=== PATIENT | female | born 1970 | race Caucasian/White ===

== ENCOUNTER 2022-11-04 11:40 | Inpatient (IN) ==
[2022-11-04] MEDS ORDERED: DECADRON INJ IV ONE (11:54)
--- NOTE | 2022-11-04 11:54 | DR.SOBA ---
HPI Time Seen Time Seen by Provider: 11/04/22 11:53 Primary Care Physician Primary Care Physician: nfd Complaints Chief Complaint Doctors Comments: 52 y/o female presents for evaluation. Has had problems with her lungs since getting covid last year. Having recurrent bronchitis issues over the past 4 months. + worsened the past few days. Having cough, not very productive. + wheezing, shortness of breath. Running low grade temp. Not a smoker. Chief Complaint:: history diff to assess. pt anxious and having trouble breathing. noted exp wheeze and using assessory muscles throughout chest and neck to breath. states she has had covid 8mths ago and has not got better. had been on antibiotics, steriods and such without improvement. Self Treatment fo Chief Complaint: has used nebs COVID-19 Coronavirus risk:travel/contact w/high risk person: No Has patient experienced Coronavirus symptoms: Yes Coronavirus symptoms experienced: Coughing and Shortness of Breath Reviewed Nurses Notes Reviewed: Yes Source History Provided: Patient Mode of Arrival Mode of Arrival: Ambulatory Timing Onset of Chief Complaint: 11/03/22 PMH PMH Past Medical History: Yes Past Medical History: Depression and Hypertension Past Medical History Comment: covid 8 months ago Past Surgical History: Yes Surgical History: , Hysterectomy and Tonsillectomy Family History History of Family Medical Conditions: Yes Family Medical History: Diabetes Mellitus, Cancer, Heart Failure and Hyp ertension Social History Alcohol Use: None Do you use any recreational Drugs:: No Lives With: Family Lives Where: Home Travel Risk Coronavirus risk:travel/contact w/high risk person: No Has patient experienced Coronavirus symptoms: Yes Coronavirus symptoms experienced: Coughing and Shortness of Breath Infectious screening In the last 2 months have you had wt loss of >10#?: NO Have you had fever, night sweats or hemotysis?: No Have you traveled outside the country in the last 6 months?: No Isolation: Droplet ROS Review of Systems Constitutional: Weakness Eyes: No Symptoms Reported ENTM: Nose Congestion Respiratoy: Moist Cough, Short of Breath and Wheezing Cardiovascular: No Symptoms Reported Gastrointestinal/Abdominal: No Symptoms Reported Genitourinary: No Symptoms Reported Neurological: Weakness Musculoskeletal: No Symptoms Reported Integumentary: No Symptoms Reported Hematologic/Lymphatic: No Symptoms Reported Psychiatric: No Symptoms Reported All Other Systems: Reviewed and Negative PE Vital Signs Vitals: Temperature 98.1 F Pulse Rate 86 Respiratory Rate 27 Blood Pressure [Right Arm] 133/77 Blood Pressure 132/77 O2 Sat by Pulse Oximetry 94 General General Appearance: Alert, In Distress and Other (+ respiratory distress, + cough, + expiratory wheezing. ) Eyes Eye exam: PERRL and EOMI ENT ENT Exam: Normal Oropharynx and Mucous Membranes Moist Neck Neck Exam: Normal Inspection Respiratory Respiratory Exam: Accessory Muscle Use, Prolonged Expiratory Phase and Respiratory Distress Respiratory Exam: Bilateral: Wheezing (expiratory) Cardiovascular Cardiovascular Exam: Regular Rate, Normal Rhythm and Normal Heart Sounds Abdominal Exam Abdominal Exam: Normal Inspection, Normal Bowel Sounds and Soft; negative Tenderness Extremities Extremities Exam: Normal Inspection and Full ROM; negative Edema Neurologic Neurological Exam: Alert, Oriented X3 and CN II-XII Intact; negative Motor Sensory Deficit Skin Skin Exam: Warm and Dry MDM Differential Diagnosis Differential Diagnosis: Asthma, Bronchitis, CHF, COPD, Mycardial Infarction and Pulmonary embolism COURSE Treatment Treatment: 52 y/o female with respiratory issues over the past year, after having Covid. + worsening symptoms over the past few days. + expiratory wheezing. W.u initiated. Given duoneb x 2, IV decadron, IV morphine. 1318 - CXR clear. Covid/flu negative. Labs acceptable. 1340 - resting, still bilateral expiratory wheezing. Recommend admission for further treatment, pt informed. Discussed with Dr Wang (employee relations director), accepts the admission. ROR Labs Reviewed Laboratory Results Reviewed?: Yes Result Diagrams: 11/04/22 11:45 11/04/22 11:54 Laboratory: WBC 14.1 X10^3/uL (3.6-10.0) H 11/04/22 11:45 RBC 4.56 X10^6/uL (3.5-5.4) 11/04/22 11:45 Hgb 12.5 g/dL (12.0-16.0) 11/04/22 11:45 Hct 37.7 % (36.0-47.0) 11/04/22 11:45 MCV 82.7 fL (80.0-100.0) 11/04/22 11:45 MCH 27.5 pg (27.0-34.0) 11/04/22 11:45 MCHC 33.3 g/dL (33.0-35.0) 11/04/22 11:45 RDW 14.4 % (11.6-16.5) 11/04/22 11:45 Plt Count 281 X10^3/uL (150.0-450.0) 11/04/22 11:45 MPV 9.3 fL (7.4-11.0) 11/04/22 11:45 Neut % (Auto) 71.1 % (42.0-75.0) 11/04/22 11:45 Lymph % (Auto) 17.5 % (21.0-51.0) L 11/04/22 11:45 [place] % (Auto) 6.8 % (0.0-13.0) 11/04/22 11:45 Eos % (Auto) 3.8 % (0.9-2.9) H 11/04/22 11:45 Baso % (Auto) 0.8 % (0.2-1.0) 11/04/22 11:45 Neut # (Auto) 10.0 x10^3/uL (2.2-4.8) H 11/04/22 11:45 Lymph # (Auto) 2.5 X10^3/uL (1.3-2.9) 11/04/22 11:45 [place] # (Auto) 1.0 x10^3/uL (0.3-0.8) H 11/04/22 11:45 Eos # (Auto) 0.5 x10^3/uL (0.0-0.2) H 11/04/22 11:45 Baso # (Auto) 0.1 X10^3/uL (0.0-0.1) 11/04/22 11:45 Absolute Nucleated RBC 0.0 /100WBC 11/04/22 11:45 Sodium 139 mmol/L (136-145) 11/04/22 11:54 Corrected Sodium TNP 11/04/22 11:54 Potassium 3.5 mmol/L (3.5-5.1) 11/04/22 11:54 Chloride 100 mmol/L (98-107) 11/04/22 11:54 Carbon Dioxide 28.6 mmol/L (21-32) 11/04/22 11:54 BUN 13 mg/dL (7-18) 11/04/22 11:54 Creatinine 0.85 mg/dL (0.55-1.02) 11/04/22 11:54 Est GFR (MDRD) Af Amer > 60 (>60) 11/04/22 11:54 Est GFR (MDRD) Non-Af > 60 (>60) 11/04/22 11:54 Glucose 104 mg/dL (65-99) H 11/04/22 11:54 Calcium 8.7 mg/dL (8.5-10.1) 11/04/22 11:54 Corrected Calcium TNP 11/04/22 11:54 Total Bilirubin 0.80 mg/dL (0.2-1.0) 11/04/22 11:54 AST 20 Units/L (15-37) 11/04/22 11:54 ALT 28 Units/L (12-78) 11/04/22 11:54 Alkaline Phosphatase 113 Units/L (46-116) 11/04/22 11:54 Troponin I High Sens 6.3 ng/L (4.0-60.0) 11/04/22 11:54 Total Protein 7.3 g/dL (6.4-8.2) 11/04/22 11:54 Albumin 3.4 g/dL (3.4-5.0) 11/04/22 11:54 Globulin 3.9 g/dL (2.5-4.5) 11/04/22 11:54 Albumin/Globulin Ratio 0.9 Ratio (1.1-2.1) L 11/04/22 11:54 Influenza Type A Ag Negative-presumptive (NEGATIVE) 11/04/22 12:21 Influenza Type B Ag Negative-presumptive (NEGATIVE) 11/04/22 12:21 SARS CoV-2 RNA Rapid RAH Negative (NEGATIVE) 11/04/22 12:21 Labs acceptable. XRAY XRAY Interpreted by: Self X-ray Results: CXR without acute abnormalities EKG Rate: 93 Jolley: Normal Rhythm: NSR Block: None Hypertrophy: LAE ST: Nonsp Opioid Opioid Risk Tool Age (Dick box if 16-45): No Total: 0 Total Score Risk Category: Low Risk Copyright: Aj MILLER predicting aberrant behaviors Discharge Plan Diagnosis Discharge Problem: Acute bronchitis with bronchospasm Discharge Plan Patient Disposition: 09 ADMITTED INPATIENT Condition: Stable Orders to Discharge Patient Discharge Orders: Transfer (Routine); Ordered 11/04/22 Ordered By: Adriano Cosby
[2022-11-04] MEDS ORDERED: DECADRON INJ ONE (12:05)
--- NOTE | 2022-11-04 12:06 | EKG ---
Test Reason : dyspnea Blood Pressure : */* mmHG Vent. Rate : 93 BPM Atrial Rate : 93 BPM P-R Int : 146 ms QRS Dur : 84 ms QT Int : 372 ms P-R-T Axes : 56 -13 37 degrees QTc Int : 462 ms Normal sinus rhythm Low voltage QRS Cannot rule out Anterior infarct , age undetermined Abnormal ECG No previous ECGs available Confirmed by Sanya Campos ([id number]) on 11/05/2022 12:33:46 PM Referred By: Confirmed By: Sanya Campos
[2022-11-04 12:25] LABS: BASOPHILS # (AUTO) 0.1 X10^3/uL (0.0-0.1); BASOPHILS % (AUTO) 0.8 % (0.2-1.0); EOSINOPHILS # (AUTO) 0.5 x10^3/uL (0.0-0.2); EOSINOPHILS % (AUTO) 3.8 % (0.9-2.9); HEMATOCRIT 37.7 % (36.0-47.0); HEMOGLOBIN 12.5 g/dL (12.0-16.0); LYMPHOCYTES # (AUTO) 2.5 X10^3/uL (1.3-2.9); LYMPHOCYTES % (AUTO) 17.5 % (21.0-51.0); MEAN CORPUSCULAR HEMOGLOBIN 27.5 pg (27.0-34.0); MEAN CORPUSCULAR HGB CONC 33.3 g/dL (33.0-35.0); MEAN CORPUSCULAR VOLUME 82.7 fL (80.0-100.0); MEAN PLATELET VOLUME 9.3 fL (7.4-11.0); MONOCYTES % (AUTO) 6.8 % (0.0-13.0); NEUTROPHILS % (AUTO) 71.1 % (42.0-75.0); RED BLOOD COUNT 4.56 X10^6/uL (3.5-5.4); RED CELL DISTRIBUTION WIDTH 14.4 % (11.6-16.5); WHITE BLOOD COUNT 14.1 X10^3/uL (3.6-10.0)
[2022-11-04 12:41] LABS: ALANINE AMINOTRANSFERASE 28 Units/L (12-78); ALBUMIN 3.4 g/dL (3.4-5.0); ALKALINE PHOSPHATASE 113 Units/L (46-116); ASPARTATE AMINO TRANSFERASE 20 Units/L (15-37); BLOOD UREA NITROGEN 13 mg/dL (7-18); CALCIUM 8.7 mg/dL (8.5-10.1); CARBON DIOXIDE 28.6 mmol/L (21-32); CHLORIDE 100 mmol/L (98-107); CREATININE 0.85 mg/dL (0.55-1.02); SODIUM 139 mmol/L (136-145); TOTAL PROTEIN 7.3 g/dL (6.4-8.2); eGFR NON BLACK RACES > 60 (>60)
[2022-11-04] MEDS ORDERED: DUONEB 0.5 MG/3 MG (3 mL) NEB ONE (12:47)
[2022-11-04] MEDS ORDERED: MORPHINE SULFATE INJ 4 MG IVP ONE (12:47)
[2022-11-04] MEDS ORDERED: ZOFRAN INJ 4 MG VIAL IVP ONE (12:48)
[2022-11-04] MEDS ORDERED: MORPHINE SULFATE INJ 4 MG ONE (12:50)
[2022-11-04] MEDS ORDERED: ZOFRAN INJ 4 MG VIAL ONE (12:50)
--- NOTE | 2022-11-04 13:11 | RAD ---
HISTORYRelevant Clinical Information syncopeSTUDYCHEST, 1 VIEWCOMPARISONDecember 2021FINDINGSThe trachea is midline. The cardiac silhouette is unremarkable. The lungs are clear without focal infiltrate or effusion. The bony thorax is unremarkable.IMPRESSIONNo acute cardiopulmonary disease.Electronically signed by: GISEL RAMÍREZ (Nov 04, 2022 13:10:11)
[2022-11-04] MEDS: NS 1,000 ML IV 1,000 ML IV SCH (15:07)
[2022-11-04 15:10] VITALS: BMI 32.2
[2022-11-04] MEDS ORDERED: HYDROCORTISONE CRM 1% TOP PRN (15:11)
[2022-11-04] MEDS: ROCEPHIN VIAL 1 GRAM 1 G in NS 100 ML IV 100 ML IV SCH (16:27)
--- NOTE | 2022-11-04 16:29 | DR.H&P ---
H&P History & Physical for Day of: H&P Date: 11/04/22 Chief Complaint Chief Complaint: Dyspnea Allergies Allergies Allergy/AdvReac Type Severity Reaction Status Date / Time No Known Drug Allergies Allergy Verified 11/04/22 11:43 History of Present Illness History of Present Illness: This is a pleasant 52-year-old white female who is a non-smoker who presented to the [facility] emergency department with a 4-day history of worsening respiratory infection and dyspnea. She has had trouble breathing off and on since having COVID last year going on for months now. She has been treated with oral antibiotics and steroids as outpatient but has not gotten any better. Today in the ER she is using her accessory muscles to breathe in her chest and neck she is noted to be hypoxic on room air with SPO2 91%. After 2 DuoNeb treatments her O2 sat did come up into the mid 90s on 2 L nasal cannula. She reports that the breathing treatments did help her breathing however she is still having diffuse expiratory wheezing on auscultation past treatments. She remains hypoxic even on O2 so we will go ahead admit her to the ICU floor and start her on IV antibiotics along with IV steroids and continue DuoNeb treatments. Chest x-ray was done was normal plan on rechecking that again tomorrow morning. I will also check a D-dimer and do a CT of her lungs if it is positive. Past Medical History Past Medical History: Depression and Hypertension Past Surgical History Surgical History: , Hysterectomy and Tonsillectomy Family History Family Medical History: Diabetes Mellitus, Cancer, Heart Failure and Hypertensi on Social History Does patient currently use any type of tobacco product: No Have you used tobacco products in the last 12 months: No Type of Tobacco Use: None Does any household member use tobacco: No Alcohol Use: None Drug Use: None Medications Home Medications: No Known Drug Allergies Allergy (Verified 11/04/22 11:43) Labs Result Diagrams: 11/04/22 11:45 11/04/22 11:54 Labs: Laboratory WBC 14.1 X10^3/uL (3.6-10.0) H 11/04/22 11:45 RBC 4.56 X10^6/uL (3.5-5.4) 11/04/22 11:45 Hgb 12.5 g/dL (12.0-16.0) 11/04/22 11:45 Hct 37.7 % (36.0-47.0) 11/04/22 11:45 MCV 82.7 fL (80.0-100.0) 11/04/22 11:45 MCH 27.5 pg (27.0-34.0) 11/04/22 11:45 MCHC 33.3 g/dL (33.0-35.0) 11/04/22 11:45 RDW 14.4 % (11.6-16.5) 11/04/22 11:45 Plt Count 281 X10^3/uL (150.0-450.0) 11/04/22 11:45 MPV 9.3 fL (7.4-11.0) 11/04/22 11:45 Neut % (Auto) 71.1 % (42.0-75.0) 11/04/22 11:45 Lymph % (Auto) 17.5 % (21.0-51.0) L 11/04/22 11:45 [place] % (Auto) 6.8 % (0.0-13.0) 11/04/22 11:45 Eos % (Auto) 3.8 % (0.9-2.9) H 11/04/22 11:45 Baso % (Auto) 0.8 % (0.2-1.0) 11/04/22 11:45 Neut # (Auto) 10.0 x10^3/uL (2.2-4.8) H 11/04/22 11:45 Lymph # (Auto) 2.5 X10^3/uL (1.3-2.9) 11/04/22 11:45 [place] # (Auto) 1.0 x10^3/uL (0.3-0.8) H 11/04/22 11:45 Eos # (Auto) 0.5 x10^3/uL (0.0-0.2) H 11/04/22 11:45 Baso # (Auto) 0.1 X10^3/uL (0.0-0.1) 11/04/22 11:45 Absolute Nucleated RBC 0.0 /100WBC 11/04/22 11:45 D-Dimer 0.49 ug/ml (0.0-0.57) 11/04/22 11:54 Sodium 139 mmol/L (136-145) 11/04/22 11:54 Corrected Sodium TNP 11/04/22 11:54 Potassium 3.5 mmol/L (3.5-5.1) 11/04/22 11:54 Chloride 100 mmol/L (98-107) 11/04/22 11:54 Carbon Dioxide 28.6 mmol/L (21-32) 11/04/22 11:54 BUN 13 mg/dL (7-18) 11/04/22 11:54 Creatinine 0.85 mg/dL (0.55-1.02) 11/04/22 11:54 Est GFR (MDRD) Af Amer > 60 (>60) 11/04/22 11:54 Est GFR (MDRD) Non-Af > 60 (>60) 11/04/22 11:54 Glucose 104 mg/dL (65-99) H 11/04/22 11:54 Calcium 8.7 mg/dL (8.5-10.1) 11/04/22 11:54 Corrected Calcium TNP 11/04/22 11:54 Total Bilirubin 0.80 mg/dL (0.2-1.0) 11/04/22 11:54 AST 20 Units/L (15-37) 11/04/22 11:54 ALT 28 Units/L (12-78) 11/04/22 11:54 Alkaline Phosphatase 113 Units/L (46-116) 11/04/22 11:54 Troponin I High Sens 6.3 ng/L (4.0-60.0) 11/04/22 11:54 Total Protein 7.3 g/dL (6.4-8.2) 11/04/22 11:54 Albumin 3.4 g/dL (3.4-5.0) 11/04/22 11:54 Globulin 3.9 g/dL (2.5-4.5) 11/04/22 11:54 Albumin/Globulin Ratio 0.9 Ratio (1.1-2.1) L 11/04/22 11:54 Influenza Type A Ag Negative-presumptive (NEGATIVE) 11/04/22 12:21 Influenza Type B Ag Negative-presumptive (NEGATIVE) 11/04/22 12:21 SARS CoV-2 RNA Rapid RAH Negative (NEGATIVE) 11/04/22 12:21 Review of Systems Constitutional: Fever, Weakness and Malaise Eyes: No Symptoms Reported ENT: Nose Discharge and Nose Congestion Respiratory: Cough, Dry, Shortness of Breath and Wheezing Cardiovascular: Light Headedness Gastrointestinal: Nausea Genitourinary: No Symptoms Reported Musculoskeletal: No Symptoms Reported Skin: No Symptoms Reported Neurological: No Symptoms Reported Physical Exam Vital Signs: Temperature 98.0 F Pulse Rate [Apical] 89 Pulse Rate 73 Respiratory Rate 40 Blood Pressure [Left Arm] 129/65 Blood Pressure [Right Arm] 133/77 Blood Pressure 138/72 O2 Sat by Pulse Oximetry 94 Oriented: Normal, Time and Place Respiratory: Wheezes Throughout Cardiovascular: Normal Auscultation: Bowel Sounds: Normal Palpation: Normal Tenderness: Normal Skin: Normal Musculoskeletal: Normal Psychiatric: Anxiety Mood Description: Labile Affect: Flat Speech Pattern: Clear and Appropriate Assessment/Plan (1) Acute bronchitis with bronchospasm: Status: Acute Plan: Continue DuoNebs every 6 hours and start the patient on IV Rocephin 1 g IV daily along with Vibramycin 100 mg IV every 12 hours and continue IV Solu-Medrol 40 mg IV every 8 hours. Recheck chest x-ray tomorrow morning. Repeat CBC and CMP tomorrow morning as well. Review H&P Reviewed: Yes Patient was examined?: Yes
[2022-11-04] MEDS: DUONEB 0.5 MG/3 MG (3 mL) NEB SCH ×2 (17:00→21:20)
[2022-11-04] MEDS: VIBRAMYCIN 100 MG in D5W 250 ML IV 250 ML IV SCH ×2 (17:37→20:22)
[2022-11-04 19:16] LABS: BILIRUBIN,URINE NEGATIVE (NEGATIVE); BLOOD/HEMOGLOBIN,URINE NEGATIVE (NEGATIVE); GLUCOSE, URINE NEGATIVE (NEGATIVE); KETONES,URINE NEGATIVE (NEGATIVE); LEUKOCYTE ESTERASE ,URINE NEGATIVE (NEGATIVE); NITRITES,URINE NEGATIVE (NEGATIVE); PROTEIN,URINE NEGATIVE (NEGATIVE); UROBILINOGEN,URINE NORMAL (NORMAL)
[2022-11-04 19:23] LABS: APPEARANCE,URINE CLEAR (CLEAR); COLOR,URINE YELLOW (YELLOW)
[2022-11-04] MEDS: SOLU-Medrol 40 MG VIAL IVP SCH (21:12)
[2022-11-04] MEDS: TYLENOL 325 MG TAB PO PRN (21:12)
[2022-11-04] MEDS ORDERED: KLOR-CON PO PRN (21:37)
[2022-11-04] MEDS ORDERED: MICRO K EXTEN CAP 10 MEQ PO PRN (21:37)
[2022-11-04] MEDS ORDERED: POTASSIUM CHL 40 MEQ/NS 0.45% 500 ML IV PRN (21:37)
[2022-11-04] MEDS ORDERED: POTASSIUM CHL 60 MEQ/NS 0.45% 500 ML IV PRN (21:37)
[2022-11-04] MEDS ORDERED: POTASSIUM CHLORIDE LIQ 20 MEQ UDC PO PRN (21:37)
[2022-11-04] MEDS ORDERED: K-DUR TAB 20 MEQ PO PRN (21:37)
[2022-11-04] MEDS ORDERED: DUONEB 0.5 MG/3 MG (3 mL) NEB SCH (22:00)
[2022-11-05] MEDS: NS 1,000 ML IV 1,000 ML IV SCH ×3 (03:39→17:17)
[2022-11-05 05:21] LABS: BASOPHILS # (AUTO) 0.1 X10^3/uL (0.0-0.1); BASOPHILS % (AUTO) 0.6 % (0.2-1.0); HEMATOCRIT 37.3 % (36.0-47.0); HEMOGLOBIN 12.9 g/dL (12.0-16.0); LYMPHOCYTES # (AUTO) 0.6 X10^3/uL (1.3-2.9); MEAN CORPUSCULAR HEMOGLOBIN 28.3 pg (27.0-34.0); MEAN CORPUSCULAR HGB CONC 34.5 g/dL (33.0-35.0); MEAN CORPUSCULAR VOLUME 82.1 fL (80.0-100.0); MONOCYTES # (AUTO) 0.1 x10^3/uL (0.3-0.8); MONOCYTES % (AUTO) 1.2 % (0.0-13.0); NEUTROPHILS # (AUTO) 9.8 x10^3/uL (2.2-4.8); NEUTROPHILS % (AUTO) 92.2 % (42.0-75.0); RED BLOOD COUNT 4.54 X10^6/uL (3.5-5.4); RED CELL DISTRIBUTION WIDTH 14.3 % (11.6-16.5); WHITE BLOOD COUNT 10.7 X10^3/uL (3.6-10.0)
[2022-11-05] MEDS: SOLU-Medrol 40 MG VIAL IVP SCH ×3 (05:28→21:48)
[2022-11-05 05:33] LABS: ALANINE AMINOTRANSFERASE 23 Units/L (12-78); ALKALINE PHOSPHATASE 109 Units/L (46-116); ASPARTATE AMINO TRANSFERASE 15 Units/L (15-37); BLOOD UREA NITROGEN 14 mg/dL (7-18); CALCIUM 8.8 mg/dL (8.5-10.1); CARBON DIOXIDE 26.7 mmol/L (21-32); CHLORIDE 103 mmol/L (98-107); COR CA(FOR HYPOALB) 9.6 mg/dL (8.5-10.1); COR NA(FOR HYPERGLY) 142 mmol/L (136-145); CREATININE 0.81 mg/dL (0.55-1.02); MAGNESIUM 1.8 mg/dL (2.0-2.9); SODIUM 141 mmol/L (136-145); eGFR NON BLACK RACES > 60 (>60)
[2022-11-05 05:47] LABS: PLATELET MORPHOLOGY COMMENT NORMAL (NORMAL)
--- NOTE | 2022-11-05 07:25 | RAD ---
HISTORYACUTE BRONCHITIS, HYPOXIA W/DIFFUSE WHEEZINGSTUDYCHEST, 1 VIEWCOMPARISONOne day prior.TECHNIQUEPA or AP view of the chestFINDINGSThe cardiac and mediastinal contours are within normal limits. The lungs are clear without focal consolidation or segmental collapse. No pleural effusion or pneumothorax.IMPRESSIONNo acute pulmonary process.Electronically signed by: David Cruz (Nov 05, 2022 07:23:40)
[2022-11-05] MEDS: DUONEB 0.5 MG/3 MG (3 mL) NEB SCH ×4 (08:10→21:25)
[2022-11-05] MEDS: ROCEPHIN VIAL 1 GRAM 1 G in NS 100 ML IV 100 ML IV SCH (08:12)
[2022-11-05] MEDS: VIBRAMYCIN 100 MG in D5W 250 ML IV 250 ML IV SCH ×2 (09:55→21:49)
[2022-11-05] MEDS: AMINOPHYLLINE IV PRN (11:39)
[2022-11-05] MEDS: D5W IV PRN (11:39)
[2022-11-05] MEDS: MAGNESIUM SULFATE 1 GRAM/100 mL PREMIX 1 G/100 ML BAG IV PRN ×2 (15:13→17:18)
--- NOTE | 2022-11-05 15:44 | PCM.PROG ---
Progress Note Progress Note for Day of Date of Exam: 11/05/22 Subjective Subjective: The patient reports that her dyspnea is improved only a little bit since yesterday. She remains hypoxic this morning on 2 L nasal cannula. She still has extensive expiratory wheezing and poor air entry bilaterally. She reports that this has been going on for for 4 months now since having COVID. She has not seen a lead informatica developer she reports. She does report being hospitalized for about a week and [place], [place] without much improvement in her breathing. Past Medical Family Social History Allergies: Allergies No Known Drug Allergies Allergy (Verified 11/04/22 11:43) Review of Systems ROS: No change since H&P Vital Signs and I&O's Vital Signs: Temperature 98.6 F Pulse Rate [Apical] 86 Pulse Rate 96 Respiratory Rate 22 Blood Pressure [Left Arm] 121/58 Blood Pressure [Right Arm] 133/77 Blood Pressure 148/65 O2 Sat by Pulse Oximetry 94 Intake and Output: Intake & Output 11/03/22 11/04/22 11/05/22 11/06/22 11:59 11:59 11:59 11:59 Intake Total 1020 / 1020 Balance 1020 / 1020 Physical Exam Oriented: Normal, Time and Place Respiratory: Generalized, Diminished and Wheezes Cardiovascular: Normal Auscultation: Bowel Sounds: Normal Palpation: Normal Tenderness: Normal Skin: Normal Musculoskeletal: Normal Psychiatric: Anxiety Mood Description: Labile Affect: Flat Speech Pattern: Clear and Appropriate Laboratory and Diagnostics Result Diagrams: 11/05/22 04:28 11/05/22 04:28 Labs: 11/04/22 18:55 Urine,Clean Catch Urine Culture - Preliminary Laboratory WBC 10.7 X10^3/uL (3.6-10.0) H 11/05/22 04:28 RBC 4.54 X10^6/uL (3.5-5.4) 11/05/22 04:28 Hgb 12.9 g/dL (12.0-16.0) 11/05/22 04:28 Hct 37.3 % (36.0-47.0) 11/05/22 04:28 MCV 82.1 fL (80.0-100.0) 11/05/22 04:28 MCH 28.3 pg (27.0-34.0) 11/05/22 04:28 MCHC 34.5 g/dL (33.0-35.0) 11/05/22 04: RDW 14.3 % (11.6-16.5) 11/05/22 04: Plt Count 278 X10^3/uL (150.0-450.0) 11/05/22 04: Plt Count Comment Adequate (ADEQUATE) 11/05/22 04: MPV 10.0 fL (7.4-11.0) 11/05/22 04: Neut % (Auto) 92.2 % (42.0-75.0) H 11/05/22 04: Lymph % (Auto) 6.0 % (21.0-51.0) L 11/05/22 04: [place] % (Auto) 1.2 % (0.0-13.0) 11/05/22 04: Eos % (Auto) 0.0 % (0.9-2.9) L 11/05/22 04: Baso % (Auto) 0.6 % (0.2-1.0) 11/05/22 04: Neut # (Auto) 9.8 x10^3/uL (2.2-4.8) H 11/05/22 04: Lymph # (Auto) 0.6 X10^3/uL (1.3-2.9) L 11/05/22 04:28 [place] # (Auto) 0.1 x10^3/uL (0.3-0.8) L 11/05/22 04: Eos # (Auto) 0.0 x10^3/uL (0.0-0.2) 11/05/22 04: Baso # (Auto) 0.1 X10^3/uL (0.0-0.1) 11/05/22 04:28 Absolute Nucleated RBC 0.0 /100WBC 11/05/22 04: Total Counted 100 11/05/22 04: Neutrophils % (Manual) 95 % (39-76) H 11/05/22 04: Lymphocytes % (Manual) 3 % (13-43) L 11/05/22 04: Monocytes % (Manual) 1 % (4-9) L 11/05/22 04: Eosinophils % (Manual) 1 % (0-6) 11/05/22 04:28 Plt Morphology Comment Normal (NORMAL) 11/05/22 04:28 RBC Morphology Normal (NORMAL) 11/05/22 04:28 D-Dimer 0.49 ug/ml (0.0-0.57) 11/04/22 11:54 Sodium 141 mmol/L (136-145) 11/05/22 04:28 Corrected Sodium 142 mmol/L (136-145) 11/05/22 04:28 Potassium 4.0 mmol/L (3.5-5.1) 11/05/22 04:28 Chloride 103 mmol/L (98-107) 11/05/22 04:28 Carbon Dioxide 26.7 mmol/L (21-32) 11/05/22 04:28 BUN 14 mg/dL (7-18) 11/05/22 04:28 Creatinine 0.81 mg/dL (0.55-1.02) 11/05/22 04:28 Est GFR (MDRD) Af Amer > 60 (>60) 11/05/22 04:28 Est GFR (MDRD) Non-Af > 60 (>60) 11/05/22 04:28 Glucose 144 mg/dL (65-99) H 11/05/22 04:28 Calcium 8.8 mg/dL (8.5-10.1) 11/05/22 04:28 Corrected Calcium 9.6 mg/dL (8.5-10.1) 11/05/22 04:28 Magnesium 1.8 mg/dL (2.0-2.9) L 11/05/22 04:28 Total Bilirubin 0.50 mg/dL (0.2-1.0) 11/05/22 04:28 AST 15 Units/L (15-37) 11/05/22 04:28 ALT 23 Units/L (12-78) 11/05/22 04:28 Alkaline Phosphatase 109 Units/L (46-116) 11/05/22 04:28 Troponin I High Sens 6.3 ng/L (4.0-60.0) 11/04/22 11:54 Total Protein 7.0 g/dL (6.4-8.2) 11/05/22 04:28 Albumin 3.0 g/dL (3.4-5.0) L 11/05/22 04:28 Globulin 4.0 g/dL (2.5-4.5) 11/05/22 04:28 Albumin/Globulin Ratio 0.8 Ratio (1.1-2.1) L 11/05/22 04:28 Specimen Type Random urine 11/04/22 18:55 Urine Color Yellow (YELLOW) 11/04/22 18:55 Urine Appearance Clear (CLEAR) 11/04/22 18:55 Urine pH 7.0 (5.0 - 8.0) 11/04/22 18:55 Ur Specific [place] 1.010 (1.000-1.030) 11/04/22 18:55 Urine Protein Negative (NEGATIVE) 11/04/22 18:55 Urine Glucose (UA) Negative (NEGATIVE) 11/04/22 18:55 Urine Ketones Negative (NEGATIVE) 11/04/22 18:55 Urine Blood Negative (NEGATIVE) 11/04/22 18:55 Urine Nitrite Negative (NEGATIVE) 11/04/22 18:55 Urine Bilirubin Negative (NEGATIVE) 11/04/22 18:55 Urine Urobilinogen Normal (NORMAL) 11/04/22 18:55 Ur Leukocyte Esterase Negative (NEGATIVE) 11/04/22 18:55 Theophylline 10.2 ug/mL (10-20) 11/05/22 12:05 Influenza Type A Ag Negative-presumptive (NEGATIVE) 11/04/22 12:21 Influenza Type B Ag Negative-presumptive (NEGATIVE) 11/04/22 12:21 SARS CoV-2 RNA Rapid RAH Negative (NEGATIVE) 11/04/22 12:21 Radiology Reviewed: Yes Plan (1) Acute bronchitis with bronchospasm: Status: Acute Plan: Continue DuoNebs every 6 hours and start the patient on IV Rocephin 1 g IV daily along with Vibramycin 100 mg IV every 12 hours and continue IV Solu-Medrol 40 mg IV every 8 hours. Recheck chest x-ray tomorrow morning. Repeat CBC and CMP tomorrow morning as well. I will add theophylline to wang tment for the patient to see if this helps improve her overall dyspnea.
[2022-11-06] MEDS: D5W IV PRN (01:50)
[2022-11-06] MEDS: AMINOPHYLLINE IV PRN (01:50)
[2022-11-06] MEDS: TYLENOL 325 MG TAB PO PRN ×2 (02:23→20:14)
[2022-11-06] MEDS: NS 1,000 ML IV 1,000 ML IV SCH (05:16)
[2022-11-06] MEDS: SOLU-Medrol 40 MG VIAL IVP SCH ×3 (06:18→21:13)
[2022-11-06] MEDS: MAG-OX TAB PO SCH ×2 (06:18→17:17)
[2022-11-06 06:19] LABS: BASOPHILS % (AUTO) 0.1 % (0.2-1.0); HEMOGLOBIN 11.8 g/dL (12.0-16.0); LYMPHOCYTES % (AUTO) 6.2 % (21.0-51.0); MEAN CORPUSCULAR HEMOGLOBIN 27.9 pg (27.0-34.0); MEAN CORPUSCULAR HGB CONC 33.8 g/dL (33.0-35.0); MEAN CORPUSCULAR VOLUME 82.4 fL (80.0-100.0); MEAN PLATELET VOLUME 9.2 fL (7.4-11.0); MONOCYTES # (AUTO) 0.4 x10^3/uL (0.3-0.8); MONOCYTES % (AUTO) 2.9 % (0.0-13.0); NEUTROPHILS % (AUTO) 90.8 % (42.0-75.0); RED BLOOD COUNT 4.24 X10^6/uL (3.5-5.4); RED CELL DISTRIBUTION WIDTH 14.2 % (11.6-16.5); WHITE BLOOD COUNT 15.4 X10^3/uL (3.6-10.0)
--- NOTE | 2022-11-06 06:21 | RAD ---
HISTORYHypoxia, dyspneaSTUDYChest AP [id number]/04/2023 chest x-rayFINDINGSHeart size is normal. Ivanna are normal. Lung smith are clear. No pleural effusions are identified. Bony thorax is unremarkable.IMPRESSIONLungs clearElectronically signed by: NINOSKA HAMMONDS (Nov 06, 2022 06:20:47)
[2022-11-06 06:26] LABS: ALANINE AMINOTRANSFERASE 25 Units/L (12-78); ALBUMIN 2.7 g/dL (3.4-5.0); ALKALINE PHOSPHATASE 104 Units/L (46-116); ASPARTATE AMINO TRANSFERASE 17 Units/L (15-37); BLOOD UREA NITROGEN 18 mg/dL (7-18); CALCIUM 8.3 mg/dL (8.5-10.1); CARBON DIOXIDE 25.6 mmol/L (21-32); CHLORIDE 103 mmol/L (98-107); COR CA(FOR HYPOALB) 9.3 mg/dL (8.5-10.1); COR NA(FOR HYPERGLY) 139 mmol/L (136-145); CREATININE 0.93 mg/dL (0.55-1.02); MAGNESIUM 1.9 mg/dL (2.0-2.9); SODIUM 138 mmol/L (136-145); THEOPHYLLINE 14.8 ug/mL (10-20); TOTAL PROTEIN 6.4 g/dL (6.4-8.2); eGFR NON BLACK RACES > 60 (>60)
[2022-11-06 06:46] LABS: BAND NEUTROPHILS % 1 % (0-10)
[2022-11-06 06:47] LABS: PLATELET MORPHOLOGY COMMENT NORMAL (NORMAL)
--- NOTE | 2022-11-06 08:10 | CT ---
HISTORYacute bronchitis with bronchospasmSTUDYCHEST WITH CONCOMPARISONChest radiograph 11/06/2022TECHNIQUEMultiple CT axial images of the chest were obtained with IV contrast. Coronal and sagittal images were reconstructed. Dose reduction techniques included Automated Exposure Control (AEC) and adjustment of mA and kV.FINDINGSThe heart is normal in size. The pulmonary artery and aorta have a normal caliber. No mediastinal mass or significant lymphadenopathy.The thyroid has a normal size and configuration. No axillary mass or significant axillary lymphadenopathy is identified.The lungs are well inflated with no pneumonia or pleural effusion. A few of the small subsegmental airways are occluded. This is very subtle and most prominent in the upper lobes. See bravo images. This might be incidental. But with the clinical history, it can be seen with asthma, bronchiolitis, and possibly allergic bronchopulmonary aspergillosis.No consolidation, pneumothorax, or lung nodule.Limited views of the upper abdomen show no significant abnormality.Degenerative changes are present in the spine.IMPRESSION1. Small subsegmental airway occlusions suggesting asthma or bronchiolitisElectronically signed by: Enrike Foote (Nov 06, 2022 08:08:59)
[2022-11-06] MEDS: ROCEPHIN VIAL 1 GRAM 1 G in NS 100 ML IV 100 ML IV SCH (08:21)
[2022-11-06] MEDS: VIBRAMYCIN 100 MG in D5W 250 ML IV 250 ML IV SCH ×2 (08:23→20:15)
[2022-11-06] MEDS: MAALOX or MYLANTA PO PRN (08:25)
[2022-11-06] MEDS: DUONEB 0.5 MG/3 MG (3 mL) NEB SCH ×4 (08:46→20:35)
[2022-11-06] MEDS: PULMICORT NEB TX 0.5 MG NEB SCH ×2 (09:37→20:35)
--- NOTE | 2022-11-06 18:27 | PCM.PROG ---
Progress Note Progress Note for Day of Date of Exam: 11/06/22 Subjective Subjective: The patient reports that her dyspnea is improved only a little bit since yesterday. She remains hypoxic this morning on 2 L nasal cannula. She has improved air entry bilaterally with decreased wheezing bilaterally. Still has mild bilateral rhonchi. She reports that this has been going on for for 4 months now since having COVID. 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 She does report being hospitalized for about a week and [place], [place] without much improvement in her breathing. Patient seems to be responding to the theophylline that we started yesterday. This morning I will go ahead and add budesonide/formoterol nebs every 12 hours as well. Past Medical Family Social History Allergies: Allergies No Known Drug Allergies Allergy (Verified 11/04/22 11:43) Review of Systems ROS: No change since H&P Vital Signs and I&O's Vital Signs: Temperature 97.8 F Pulse Rate [Apical] 79 Pulse Rate 87 Respiratory Rate 26 Blood Pressure [Left Arm] 112/54 Blood Pressure [Right Arm] 154/76 Blood Pressure 100/52 O2 Sat by Pulse Oximetry 97 Intake and Output: Intake & Output 11/04/22 11/05/22 11/06/22 11/07/22 11:59 11:59 11:59 11:59 Intake Total 1020 / 1020 3005 / 3005 1230 / 1230 Balance 1020 / 1020 3005 / 3005 1230 / 1230 Physical Exam Oriented: Normal, Time and Place Respiratory: Generalized and Diminished Cardiovascular: Normal Auscultation: Bowel Sounds: Normal Tenderness: Normal Skin: Normal Musculoskeletal: Normal Psychiatric: Anxiety Mood Description: Labile Affect: Flat Speech Pattern: Clear and Appropriate Laboratory and Diagnostics Result Diagrams: 11/06/22 05:55 11/06/22 05:55 Labs: 11/04/22 18:55 Urine,Clean Catch Urine Culture - Final [facility] WBC 15.4 X10^3/uL (3.6-10.0) H 11/06/22 05:55 RBC 4.24 X10^6/uL (3.5-5.4) 11/06/22 05:55 Hgb 11.8 g/dL (12.0-16.0) L 11/06/22 05:55 Hct 35.0 % (36.0-47.0) L 11/06/22 05:55 MCV 82.4 fL (80.0-100.0) 11/06/22 05:55 MCH 27.9 pg (27.0-34.0) 11/06/22 05:55 MCHC 33.8 g/dL (33.0-35.0) 11/06/22 05:55 RDW 14.2 % (11.6-16.5) 11/06/22 05:55 Plt Count 336 X10^3/uL (150.0-450.0) 11/06/22 05:55 Plt Count Comment Adequate (ADEQUATE) 11/06/22 05:55 MPV 9.2 fL (7.4-11.0) 11/06/22 05:55 Neut % (Auto) 90.8 % (42.0-75.0) H 11/06/22 05:55 Lymph % (Auto) 6.2 % (21.0-51.0) L 11/06/22 05:55 [place] % (Auto) 2.9 % (0.0-13.0) 11/06/22 05:55 Eos % (Auto) 0.0 % (0.9-2.9) L 11/06/22 05:55 Baso % (Auto) 0.1 % (0.2-1.0) L 11/06/22 05:55 Neut # (Auto) 14.0 x10^3/uL (2.2-4.8) H 11/06/22 05:55 Lymph # (Auto) 1.0 X10^3/uL (1.3-2.9) L 11/06/22 05:55 [place] # (Auto) 0.4 x10^3/uL (0.3-0.8) 11/06/22 05:55 Eos # (Auto) 0.0 x10^3/uL (0.0-0.2) 11/06/22 05:55 Baso # (Auto) 0.0 X10^3/uL (0.0-0.1) 11/06/22 05:55 Absolute Nucleated RBC 0.0 /100WBC 11/06/22 05:55 Total Counted 100 11/06/22 05:55 Neutrophils % (Manual) 88 % (39-76) H 11/06/22 05:55 Band Neutrophils % 1 % (0-10) 11/06/22 05:55 Lymphocytes % (Manual) 10 % (13-43) L 11/06/22 05:55 Monocytes % (Manual) 1 % (4-9) L 11/06/22 05:55 Eosinophils % (Manual) 1 % (0-6) 11/05/22 04:28 Plt Morphology Comment Normal (NORMAL) 11/06/22 05:55 RBC Morphology Normal (NORMAL) 11/06/22 05:55 D-Dimer 0.49 ug/ml (0.0-0.57) 11/04/22 11:54 Sodium 138 mmol/L (136-145) 11/06/22 05:55 Corrected Sodium 139 mmol/L (136-145) 11/06/22 05:55 Potassium 3.8 mmol/L (3.5-5.1) 11/06/22 05:55 Chloride 103 mmol/L (98-107) 11/06/22 05:55 Carbon Dioxide 25.6 mmol/L (21-32) 11/06/22 05:55 BUN 18 mg/dL (7-18) 11/06/22 05:55 Creatinine 0.93 mg/dL (0.55-1.02) 11/06/22 05:55 Est GFR (MDRD) Af Amer > 60 (>60) 11/06/22 05:55 Est GFR (MDRD) Non-Af > 60 (>60) 11/06/22 05:55 Glucose 149 mg/dL (65-99) H 11/06/22 05:55 Calcium 8.3 mg/dL (8.5-10.1) L 11/06/22 05:55 Corrected Calcium 9.3 mg/dL (8.5-10.1) 11/06/22 05:55 Magnesium 1.9 mg/dL (2.0-2.9) L 11/06/22 05:55 Total Bilirubin 0.30 mg/dL (0.2-1.0) 11/06/22 05:55 AST 17 Units/L (15-37) 11/06/22 05:55 ALT 25 Units/L (12-78) 11/06/22 05:55 Alkaline Phosphatase 104 Units/L (46-116) 11/06/22 05:55 Troponin I High Sens 6.3 ng/L (4.0-60.0) 11/04/22 11:54 Total Protein 6.4 g/dL (6.4-8.2) 11/06/22 05:55 Albumin 2.7 g/dL (3.4-5.0) L 11/06/22 05:55 Globulin 3.7 g/dL (2.5-4.5) 11/06/22 05:55 Albumin/Globulin Ratio 0.7 Ratio (1.1-2.1) L 11/06/22 05:55 Specimen Type Random urine 11/04/22 18:55 Urine Color Yellow (YELLOW) 11/04/22 18:55 Urine Appearance Clear (CLEAR) 11/04/22 18:55 Urine pH 7.0 (5.0 - 8.0) 11/04/22 18:55 Ur Specific [place] 1.010 (1.000-1.030) 11/04/22 18:55 Urine Protein Negative (NEGATIVE) 11/04/22 18:55 Urine Glucose (UA) Negative (NEGATIVE) 11/04/22 18:55 Urine Ketones Negative (NEGATIVE) 11/04/22 18:55 Urine Blood Negative (NEGATIVE) 11/04/22 18:55 Urine Nitrite Negative (NEGATIVE) 11/04/22 18:55 Urine Bilirubin Negative (NEGATIVE) 11/04/22 18:55 Urine Urobilinogen Normal (NORMAL) 11/04/22 18:55 Ur Leukocyte Esterase Negative (NEGATIVE) 11/04/22 18:55 Theophylline 14.9 ug/mL (10-20) 11/06/22 17:55 Influenza Type A Ag Negative-presumptive (NEGATIVE) 11/04/22 12:21 Influenza Type B Ag Negative-presumptive (NEGATIVE) 11/04/22 12:21 SARS CoV-2 RNA Rapid RAH Negative (NEGATIVE) 11/04/22 12:21 Plan (1) Acute bronchitis with bronchospasm: Status: Acute Narrative Support Text: Clinically improved since admission. Air entry is improving and decrease in wheezing now. Plan: Continue DuoNebs every 6 hours and start the patient on IV Rocephin 1 g IV daily along with Vibramycin 100 mg IV every 12 hours and continue IV Solu-Medrol 40 mg IV every 8 hours. Recheck chest x-ray tomorrow morning. Repeat CBC and CMP tomorrow morning as well. I will continue theophylline treatment for the patient. I will add budesonide/formoterol nebs every 12 hours.
[2022-11-06] MEDS ORDERED: COLACE CAP 100 MG PO ONE ×2 (20:09→20:13)
[2022-11-06] MEDS: COLACE CAP 100 MG PO PRN (20:14)
[2022-11-06] MEDS: K-RIDER 10 MEQ/NS 100 ML 10 MEQ/100 ML BAG IV PRN (22:55)
[2022-11-07] MEDS: TYLENOL 325 MG TAB PO PRN ×2 (00:09→05:36)
[2022-11-07] MEDS: PEPCID TAB 20 MG PO SCH ×2 (00:11→21:26)
[2022-11-07] MEDS: MAALOX or MYLANTA PO PRN (00:12)
[2022-11-07] MEDS: K-RIDER 10 MEQ/NS 100 ML 10 MEQ/100 ML BAG IV PRN (00:33)
[2022-11-07] MEDS: AMINOPHYLLINE IV PRN (01:55)
[2022-11-07] MEDS: D5W IV PRN (01:55)
[2022-11-07] MEDS: SOLU-Medrol 40 MG VIAL IVP SCH ×3 (05:36→21:26)
[2022-11-07] MEDS: NS 1,000 ML IV 1,000 ML IV SCH ×3 (05:45→21:21)
[2022-11-07] MEDS: MAG-OX TAB PO SCH ×2 (06:17→16:07)
[2022-11-07 06:23] LABS: BASOPHILS % (AUTO) 0.1 % (0.2-1.0); HEMATOCRIT 36.6 % (36.0-47.0); HEMOGLOBIN 12.1 g/dL (12.0-16.0); LYMPHOCYTES # (AUTO) 1.3 X10^3/uL (1.3-2.9); LYMPHOCYTES % (AUTO) 9.7 % (21.0-51.0); MEAN CORPUSCULAR HEMOGLOBIN 27.4 pg (27.0-34.0); MEAN CORPUSCULAR VOLUME 83.2 fL (80.0-100.0); MEAN PLATELET VOLUME 8.9 fL (7.4-11.0); MONOCYTES # (AUTO) 0.4 x10^3/uL (0.3-0.8); MONOCYTES % (AUTO) 3.1 % (0.0-13.0); NEUTROPHILS # (AUTO) 11.8 x10^3/uL (2.2-4.8); NEUTROPHILS % (AUTO) 87.1 % (42.0-75.0); RED CELL DISTRIBUTION WIDTH 14.4 % (11.6-16.5); WHITE BLOOD COUNT 13.5 X10^3/uL (3.6-10.0)
[2022-11-07 06:24] LABS: ALANINE AMINOTRANSFERASE 74 Units/L (12-78); ALBUMIN 2.7 g/dL (3.4-5.0); ALKALINE PHOSPHATASE 102 Units/L (46-116); ASPARTATE AMINO TRANSFERASE 41 Units/L (15-37); BLOOD UREA NITROGEN 15 mg/dL (7-18); CALCIUM 8.3 mg/dL (8.5-10.1); CARBON DIOXIDE 27.4 mmol/L (21-32); CHLORIDE 102 mmol/L (98-107); COR CA(FOR HYPOALB) 9.3 mg/dL (8.5-10.1); COR NA(FOR HYPERGLY) 138 mmol/L (136-145); CREATININE 0.87 mg/dL (0.55-1.02); MAGNESIUM 1.9 mg/dL (2.0-2.9); SODIUM 137 mmol/L (136-145); TOTAL PROTEIN 6.4 g/dL (6.4-8.2); eGFR NON BLACK RACES > 60 (>60)
[2022-11-07] MEDS: PULMICORT NEB TX 0.5 MG NEB SCH ×2 (08:00→21:32)
[2022-11-07] MEDS: DUONEB 0.5 MG/3 MG (3 mL) NEB SCH ×4 (08:00→21:32)
[2022-11-07] MEDS: ROCEPHIN VIAL 1 GRAM 1 G in NS 100 ML IV 100 ML IV SCH (08:03)
[2022-11-07] MEDS: TUSSIONEX PENNKINETIC SUSP PO SCH ×2 (08:38→21:26)
[2022-11-07] MEDS: UNIPHYL TAB 400 MG 24-HR PO SCH (08:38)
[2022-11-07] MEDS: VIBRAMYCIN 100 MG in D5W 250 ML IV 250 ML IV SCH ×2 (08:39→21:21)
--- NOTE | 2022-11-07 12:58 | PCM.PROG ---
Progress Note Progress Note for Day of Date of Exam: 11/07/22 Subjective Subjective: The patient is alert and awake this morning. She reports she is continuing to breathe better from the day before. She is down to 2 L now and has been maintaining her sats above 90. Currently she is 96% on 2 L. She is currently therapeutic on aminophylline drip. We are stopping that today and changing her to p.o. theophylline 400 mg twice daily. Exam revealed that she has increasing air entry bilaterally and decreased wheezing and is slowly recovering from her bronchiolitis/bronchospasm. Her white blood cell count is down today and she remains afebrile with rest of her vital signs are stable. Past Medical Family Social History Allergies: Allergies No Known Drug Allergies Allergy (Verified 11/04/22 11:43) Review of Systems ROS: No change since H&P Vital Signs and I&O's Vital Signs: Temperature 98.3 F Pulse Rate [Apical] 81 Pulse Rate 64 Respiratory Rate 16 Blood Pressure [Left Arm] 120/57 Blood Pressure [Right Arm] 154/76 Blood Pressure 100/52 O2 Sat by Pulse Oximetry 96 Intake and Output: Intake & Output 11/05/22 11/06/22 11/07/22 11/08/22 11:59 11:59 11:59 11:59 Intake Total 1020 / 1020 3005 / 3005 2821 / 2821 Balance 1020 / 1020 3005 / 3005 2821 / 2821 Physical Exam Oriented: Normal, Time and Place Respiratory: Generalized and Diminished Cardiovascular: Normal Auscultation: Bowel Sounds: Normal Tenderness: Normal Skin: Normal Musculoskeletal: Normal Psychiatric: Anxiety Mood Description: Labile Affect: Flat Speech Pattern: Clear and Appropriate Laboratory and Diagnostics Result Diagrams: 11/07/22 05:58 11/07/22 05:58 Labs: 11/04/22 18:55 Urine,Clean Catch Urine Culture - Final [facility] WBC 13.5 X10^3/uL (3.6-10.0) H 11/07/22 05:58 RBC 4.40 X10^6/uL (3.5-5.4) 11/07/22 05:58 Hgb 12.1 g/dL (12.0-16.0) 11/07/22 05:58 Hct 36.6 % (36.0-47.0) 11/07/22 05:58 MCV 83.2 fL (80.0-100.0) 11/07/22 05:58 MCH 27.4 pg (27.0-34.0) 11/07/22 05:58 MCHC 33.0 g/dL (33.0-35.0) 11/07/22 05:58 RDW 14.4 % (11.6-16.5) 11/07/22 05:58 Plt Count 343 X10^3/uL (150.0-450.0) 11/07/22 05:58 Plt Count Comment Adequate (ADEQUATE) 11/06/22 05:55 MPV 8.9 fL (7.4-11.0) 11/07/22 05:58 Neut % (Auto) 87.1 % (42.0-75.0) H 11/07/22 05:58 Lymph % (Auto) 9.7 % (21.0-51.0) L 11/07/22 05:58 [place] % (Auto) 3.1 % (0.0-13.0) 11/07/22 05:58 Eos % (Auto) 0.0 % (0.9-2.9) L 11/07/22 05:58 Baso % (Auto) 0.1 % (0.2-1.0) L 11/07/22 05:58 Neut # (Auto) 11.8 x10^3/uL (2.2-4.8) H 11/07/22 05:58 Lymph # (Auto) 1.3 X10^3/uL (1.3-2.9) 11/07/22 05:58 [place] # (Auto) 0.4 x10^3/uL (0.3-0.8) 11/07/22 05:58 Eos # (Auto) 0.0 x10^3/uL (0.0-0.2) 11/07/22 05:58 Baso # (Auto) 0.0 X10^3/uL (0.0-0.1) 11/07/22 05:58 Absolute Nucleated RBC 0.0 /100WBC 11/07/22 05:58 Total Counted 100 11/06/22 05:55 Neutrophils % (Manual) 88 % (39-76) H 11/06/22 05:55 Band Neutrophils % 1 % (0-10) 11/06/22 05:55 Lymphocytes % (Manual) 10 % (13-43) L 11/06/22 05:55 Monocytes % (Manual) 1 % (4-9) L 11/06/22 05:55 Eosinophils % (Manual) 1 % (0-6) 11/05/22 04:28 Plt Morphology Comment Normal (NORMAL) 11/06/22 05:55 RBC Morphology Normal (NORMAL) 11/06/22 05:55 D-Dimer 0.49 ug/ml (0.0-0.57) 11/04/22 11:54 Sodium 137 mmol/L (136-145) 11/07/22 05:58 Corrected Sodium 138 mmol/L (136-145) 11/07/22 05:58 Potassium 3.8 mmol/L (3.5-5.1) 11/07/22 05:58 Chloride 102 mmol/L (98-107) 11/07/22 05:58 Carbon Dioxide 27.4 mmol/L (21-32) 11/07/22 05:58 BUN 15 mg/dL (7-18) 11/07/22 05:58 Creatinine 0.87 mg/dL (0.55-1.02) 11/07/22 05:58 Est GFR (MDRD) Af Amer > 60 (>60) 11/07/22 05:58 Est GFR (MDRD) Non-Af > 60 (>60) 11/07/22 05:58 Glucose 131 mg/dL (65-99) H 11/07/22 05:58 Calcium 8.3 mg/dL (8.5-10.1) L 11/07/22 05:58 Corrected Calcium 9.3 mg/dL (8.5-10.1) 11/07/22 05:58 Magnesium 1.9 mg/dL (2.0-2.9) L 11/07/22 05:58 Total Bilirubin 0.30 mg/dL (0.2-1.0) 11/07/22 05:58 AST 41 Units/L (15-37) H 11/07/22 05:58 ALT 74 Units/L (12-78) 11/07/22 05:58 Alkaline Phosphatase 102 Units/L (46-116) 11/07/22 05:58 Troponin I High Sens 6.3 ng/L (4.0-60.0) 11/04/22 11:54 Total Protein 6.4 g/dL (6.4-8.2) 11/07/22 05:58 Albumin 2.7 g/dL (3.4-5.0) L 11/07/22 05:58 Globulin 3.7 g/dL (2.5-4.5) 11/07/22 05:58 Albumin/Globulin Ratio 0.7 Ratio (1.1-2.1) L 11/07/22 05:58 Specimen Type Random urine 11/04/22 18:55 Urine Color Yellow (YELLOW) 11/04/22 18:55 Urine Appearance Clear (CLEAR) 11/04/22 18:55 Urine pH 7.0 (5.0 - 8.0) 11/04/22 18:55 Ur Specific [place] 1.010 (1.000-1.030) 11/04/22 18:55 Urine Protein Negative (NEGATIVE) 11/04/22 18:55 Urine Glucose (UA) Negative (NEGATIVE) 11/04/22 18:55 Urine Ketones Negative (NEGATIVE) 11/04/22 18:55 Urine Blood Negative (NEGATIVE) 11/04/22 18:55 Urine Nitrite Negative (NEGATIVE) 11/04/22 18:55 Urine Bilirubin Negative (NEGATIVE) 11/04/22 18:55 Urine Urobilinogen Normal (NORMAL) 11/04/22 18:55 Ur Leukocyte Esterase Negative (NEGATIVE) 11/04/22 18:55 Theophylline 16.1 ug/mL (10-20) 11/07/22 05:58 Influenza Type A Ag Negative-presumptive (NEGATIVE) 11/04/22 12:21 Influenza Type B Ag Negative-presumptive (NEGATIVE) 11/04/22 12:21 SARS CoV-2 RNA Rapid RAH Negative (NEGATIVE) 11/04/22 12:21 Radiology Reviewed: Yes Plan (1) Acute bronchitis with bronchospasm: Status: Acute Narrative Support Text: Improving slightly. Plan: Continue DuoNebs every 6 hours and start the patient on IV Rocephin 1 g IV daily along with Vibramycin 100 mg IV every 12 hours and continue IV Solu-Medrol 40 mg IV every 8 hours. Recheck chest x-ray tomorrow morning. Repeat CBC and CMP tomorrow morning as well. I will continue p.o. theophylline treatment for the patient. Continue budesonide/formoterol nebs every 12 hours.
[2022-11-08 05:28] LABS: BASOPHILS % (AUTO) 0.3 % (0.2-1.0); HEMATOCRIT 37.6 % (36.0-47.0); HEMOGLOBIN 12.8 g/dL (12.0-16.0); LYMPHOCYTES % (AUTO) 10.5 % (21.0-51.0); MEAN CORPUSCULAR HEMOGLOBIN 28.3 pg (27.0-34.0); MEAN CORPUSCULAR VOLUME 83.3 fL (80.0-100.0); MEAN PLATELET VOLUME 9.4 fL (7.4-11.0); MONOCYTES # (AUTO) 0.4 x10^3/uL (0.3-0.8); MONOCYTES % (AUTO) 4.4 % (0.0-13.0); NEUTROPHILS # (AUTO) 8.1 x10^3/uL (2.2-4.8); NEUTROPHILS % (AUTO) 84.8 % (42.0-75.0); RED BLOOD COUNT 4.52 X10^6/uL (3.5-5.4); RED CELL DISTRIBUTION WIDTH 14.4 % (11.6-16.5); WHITE BLOOD COUNT 9.6 X10^3/uL (3.6-10.0)
[2022-11-08 05:42] LABS: ALANINE AMINOTRANSFERASE 66 Units/L (12-78); ALBUMIN 2.8 g/dL (3.4-5.0); ALKALINE PHOSPHATASE 118 Units/L (46-116); ASPARTATE AMINO TRANSFERASE 27 Units/L (15-37); BLOOD UREA NITROGEN 16 mg/dL (7-18); CALCIUM 8.7 mg/dL (8.5-10.1); CARBON DIOXIDE 28.4 mmol/L (21-32); CHLORIDE 101 mmol/L (98-107); COR CA(FOR HYPOALB) 9.7 mg/dL (8.5-10.1); COR NA(FOR HYPERGLY) 135 mmol/L (136-145); CREATININE 0.78 mg/dL (0.55-1.02); SODIUM 135 mmol/L (136-145); THEOPHYLLINE 15.3 ug/mL (10-20); TOTAL PROTEIN 6.6 g/dL (6.4-8.2); eGFR NON BLACK RACES > 60 (>60)
[2022-11-08] MEDS: SOLU-Medrol 40 MG VIAL IVP SCH ×3 (06:05→21:02)
[2022-11-08] MEDS: MAG-OX TAB PO SCH ×2 (06:06→17:38)
[2022-11-08] MEDS ORDERED: TUSSIONEX PENNKINETIC SUSP ONE (08:15)
[2022-11-08] MEDS: UNIPHYL TAB 400 MG 24-HR PO SCH (08:20)
[2022-11-08] MEDS: TUSSIONEX PENNKINETIC SUSP PO SCH ×2 (08:21→21:02)
[2022-11-08] MEDS: VIBRAMYCIN 100 MG in D5W 250 ML IV 250 ML IV SCH ×2 (08:21→21:03)
[2022-11-08] MEDS: ROCEPHIN VIAL 1 GRAM 1 G in NS 100 ML IV 100 ML IV SCH (08:21)
[2022-11-08] MEDS: PEPCID TAB 20 MG PO SCH ×2 (08:21→21:02)
[2022-11-08] MEDS: DUONEB 0.5 MG/3 MG (3 mL) NEB SCH ×4 (08:40→20:15)
[2022-11-08] MEDS: PULMICORT NEB TX 0.5 MG NEB SCH ×2 (08:40→20:15)
[2022-11-08] MEDS: NS 1,000 ML IV 1,000 ML IV SCH ×2 (10:22→16:18)
--- NOTE | 2022-11-08 10:50 | PCM.PROG ---
Progress Note Progress Note for Day of Date of Exam: 11/08/22 Subjective Subjective: Pt is a 52 year old female admitted for acute bronchitis and bronchiolitis. This morning she reports some improvement in her symptoms and breathing. She is alert and awake and remains on 2L nasal cannula supplemental oxygen. Labs: Wbc 9.6, Hgb 12.8, Plt 354, Na 135, K 4.1, Creatinine 0.78, G lucose 120, Urine culture positive [facility]. Maintaining her sats above 90. She is currently receiving p.o. theophylline 400 mg twice daily, IV Solumedrol 40mg q8h, antibiotics: Rocephin and Vibramycin. Will order smart vest. Otherwise will continue with current treatment plan. Continue to monitor and follow up labs/imaging. Past Medical Family Social History Allergies: Allergies No Known Drug Allergies Allergy (Verified 11/04/22 11:43) Review of Systems ROS: No change since H&P Vital Signs and I&O's Vital Signs: Temperature 98.2 F Pulse Rate [Apical] 78 Pulse Rate 95 Respiratory Rate 18 Blood Pressure [Left Arm] 134/61 Blood Pressure [Right Arm] 154/76 Blood Pressure 100/52 O2 Sat by Pulse Oximetry 93 Intake and Output: Intake & Output 11/05/22 11/06/22 11/07/22 11/08/22 23:59 23:59 23:59 23:59 Intake Total 3005 / 3005 2807 / 2807 3182 / 3182 776 / 776 Balance 3005 / 3005 2807 / 2807 3182 / 3182 776 / 776 Physical Exam Oriented: Normal, Time and Place Respiratory: Generalized and Diminished Cardiovascular: Normal Auscultation: Bowel Sounds: Normal Tenderness: Normal Skin: Normal Musculoskeletal: Normal Psychiatric: Anxiety Mood Description: Labile Affect: Flat Speech Pattern: Clear and Appropriate Laboratory and Diagnostics Result Diagrams: 11/08/22 04:00 11/08/22 04:00 Labs: 11/04/22 18:55 Urine,Clean Catch Urine Culture - Final [facility] WBC 9.6 X10^3/uL (3.6-10.0) 11/08/22 04:00 RBC 4.52 X10^6/uL (3.5-5.4) 11/08/22 04:00 Hgb 12.8 g/dL (12.0-16.0) 11/08/22 04:00 Hct 37.6 % (36.0-47.0) 11/08/22 04:00 MCV 83.3 fL (80.0-100.0) 11/08/22 04:00 MCH 28.3 pg (27.0-34.0) 11/08/22 04:00 MCHC 34.0 g/dL (33.0-35.0) 11/08/22 04:00 RDW 14.4 % (11.6-16.5) 11/08/22 04:00 Plt Count 354 X10^3/uL (150.0-450.0) 11/08/22 04:00 Plt Count Comment Adequate (ADEQUATE) 11/06/22 05:55 MPV 9.4 fL (7.4-11.0) 11/08/22 04:00 Neut % (Auto) 84.8 % (42.0-75.0) H 11/08/22 04:00 Lymph % (Auto) 10.5 % (21.0-51.0) L 11/08/22 04:00 [place] % (Auto) 4.4 % (0.0-13.0) 11/08/22 04:00 Eos % (Auto) 0.0 % (0.9-2.9) L 11/08/22 04:00 Baso % (Auto) 0.3 % (0.2-1.0) 11/08/22 04:00 Neut # (Auto) 8.1 x10^3/uL (2.2-4.8) H 11/08/22 04:00 Lymph # (Auto) 1.0 X10^3/uL (1.3-2.9) L 11/08/22 04:00 [place] # (Auto) 0.4 x10^3/uL (0.3-0.8) 11/08/22 04:00 Eos # (Auto) 0.0 x10^3/uL (0.0-0.2) 11/08/22 04:00 Baso # (Auto) 0.0 X10^3/uL (0.0-0.1) 11/08/22 04:00 Absolute Nucleated RBC 0.0 /100WBC 11/08/22 04:00 Total Counted 100 11/06/22 05:55 Neutrophils % (Manual) 88 % (39-76) H 11/06/22 05:55 Band Neutrophils % 1 % (0-10) 11/06/22 05:55 Lymphocytes % (Manual) 10 % (13-43) L 11/06/22 05:55 Monocytes % (Manual) 1 % (4-9) L 11/06/22 05:55 Eosinophils % (Manual) 1 % (0-6) 11/05/22 04:28 Plt Morphology Comment Normal (NORMAL) 11/06/22 05:55 RBC Morphology Normal (NORMAL) 11/06/22 05:55 D-Dimer 0.49 ug/ml (0.0-0.57) 11/04/22 11:54 Sodium 135 mmol/L (136-145) L 11/08/22 04:00 Corrected Sodium 135 mmol/L (136-145) L 11/08/22 04:00 Potassium 4.1 mmol/L (3.5-5.1) 11/08/22 04:00 Chloride 101 mmol/L (98-107) 11/08/22 04:00 Carbon Dioxide 28.4 mmol/L (21-32) 11/08/22 04:00 BUN 16 mg/dL (7-18) 11/08/22 04:00 Creatinine 0.78 mg/dL (0.55-1.02) 11/08/22 04:00 Est GFR (MDRD) Af Amer > 60 (>60) 11/08/22 04:00 Est GFR (MDRD) Non-Af > 60 (>60) 11/08/22 04:00 Glucose 120 mg/dL (65-99) H 11/08/22 04:00 Calcium 8.7 mg/dL (8.5-10.1) 11/08/22 04:00 Corrected Calcium 9.7 mg/dL (8.5-10.1) 11/08/22 04:00 Magnesium 1.9 mg/dL (2.0-2.9) L 11/08/22 04:00 Total Bilirubin 0.20 mg/dL (0.2-1.0) 11/08/22 04:00 AST 27 Units/L (15-37) 11/08/22 04:00 ALT 66 Units/L (12-78) 11/08/22 04:00 Alkaline Phosphatase 118 Units/L (46-116) H 11/08/22 04:00 Troponin I High Sens 6.3 ng/L (4.0-60.0) 11/04/22 11:54 Total Protein 6.6 g/dL (6.4-8.2) 11/08/22 04:00 Albumin 2.8 g/dL (3.4-5.0) L 11/08/22 04:00 Globulin 3.8 g/dL (2.5-4.5) 11/08/22 04:00 Albumin/Globulin Ratio 0.7 Ratio (1.1-2.1) L 11/08/22 04:00 Specimen Type Random urine 11/04/22 18:55 Urine Color Yellow (YELLOW) 11/04/22 18:55 Urine Appearance Clear (CLEAR) 11/04/22 18:55 Urine pH 7.0 (5.0 - 8.0) 11/04/22 18:55 Ur Specific [place] 1.010 (1.000-1.030) 11/04/22 18:55 Urine Protein Negative (NEGATIVE) 11/04/22 18:55 Urine Glucose (UA) Negative (NEGATIVE) 11/04/22 18:55 Urine Ketones Negative (NEGATIVE) 11/04/22 18:55 Urine Blood Negative (NEGATIVE) 11/04/22 18:55 Urine Nitrite Negative (NEGATIVE) 11/04/22 18:55 Urine Bilirubin Negative (NEGATIVE) 11/04/22 18:55 Urine Urobilinogen Normal (NORMAL) 11/04/22 18:55 Ur Leukocyte Esterase Negative (NEGATIVE) 11/04/22 18:55 Theophylline 15.3 ug/mL (10-20) 11/08/22 04:00 Influenza Type A Ag Negative-presumptive (NEGATIVE) 11/04/22 12:21 Influenza Type B Ag Negative-presumptive (NEGATIVE) 11/04/22 12:21 SARS CoV-2 RNA Rapid RAH Negative (NEGATIVE) 11/04/22 12:21 Plan (1) Acute bronchitis with bronchospasm: Status: Acute Plan: Continue DuoNebs every 6 hours and start the patient on IV Rocephin 1 g IV daily along with Vibramycin 100 mg IV every 12 hours and continue IV Solu-Medrol 40 mg IV every 8 hours. Recheck chest x-ray tomorrow morning. Repeat CBC and CMP tomorrow morning as well. I will continue p.o. theophylline treatment for the patient. Continue budesonide/formoterol nebs every 12 hours.
[2022-11-09] MEDS: NS 1,000 ML IV 1,000 ML IV SCH ×2 (02:38→12:12)
[2022-11-09 05:07] LABS: BASOPHILS % (AUTO) 0.2 % (0.2-1.0); HEMATOCRIT 38.8 % (36.0-47.0); HEMOGLOBIN 13.2 g/dL (12.0-16.0); LYMPHOCYTES # (AUTO) 1.2 X10^3/uL (1.3-2.9); LYMPHOCYTES % (AUTO) 11.9 % (21.0-51.0); MEAN CORPUSCULAR HEMOGLOBIN 28.2 pg (27.0-34.0); MEAN CORPUSCULAR HGB CONC 34.1 g/dL (33.0-35.0); MEAN CORPUSCULAR VOLUME 82.7 fL (80.0-100.0); MONOCYTES # (AUTO) 0.5 x10^3/uL (0.3-0.8); MONOCYTES % (AUTO) 5.3 % (0.0-13.0); NEUTROPHILS # (AUTO) 8.4 x10^3/uL (2.2-4.8); NEUTROPHILS % (AUTO) 82.6 % (42.0-75.0); RED CELL DISTRIBUTION WIDTH 14.4 % (11.6-16.5); WHITE BLOOD COUNT 10.2 X10^3/uL (3.6-10.0)
[2022-11-09 05:21] LABS: ALANINE AMINOTRANSFERASE 58 Units/L (12-78); ALBUMIN 2.9 g/dL (3.4-5.0); ALKALINE PHOSPHATASE 113 Units/L (46-116); ASPARTATE AMINO TRANSFERASE 15 Units/L (15-37); BLOOD UREA NITROGEN 20 mg/dL (7-18); CALCIUM 8.6 mg/dL (8.5-10.1); CARBON DIOXIDE 29.8 mmol/L (21-32); CHLORIDE 99 mmol/L (98-107); COR CA(FOR HYPOALB) 9.5 mg/dL (8.5-10.1); COR NA(FOR HYPERGLY) 136 mmol/L (136-145); CREATININE 0.83 mg/dL (0.55-1.02); SODIUM 135 mmol/L (136-145); TOTAL PROTEIN 6.6 g/dL (6.4-8.2); eGFR NON BLACK RACES > 60 (>60)
[2022-11-09] MEDS: MAG-OX TAB PO SCH ×2 (06:06→16:25)
[2022-11-09] MEDS: SOLU-Medrol 40 MG VIAL IVP SCH ×3 (06:06→21:03)
[2022-11-09] MEDS ORDERED: COLACE CAP 100 MG PO PRN (07:38)
[2022-11-09] MEDS: UNIPHYL TAB 400 MG 24-HR PO SCH (08:17)
[2022-11-09] MEDS: ROCEPHIN VIAL 1 GRAM 1 G in NS 100 ML IV 100 ML IV SCH (08:17)
[2022-11-09] MEDS: COLACE CAP 100 MG PO PRN ×2 (08:17→23:16)
[2022-11-09] MEDS: PEPCID TAB 20 MG PO SCH ×2 (08:17→21:02)
[2022-11-09] MEDS: MILK OF MAGNESIA PO PRN (08:18)
[2022-11-09] MEDS: VIBRAMYCIN 100 MG in D5W 250 ML IV 250 ML IV SCH ×2 (08:18→21:02)
[2022-11-09] MEDS: TUSSIONEX PENNKINETIC SUSP PO SCH ×2 (08:18→21:02)
[2022-11-09] MEDS: PULMICORT NEB TX 0.5 MG NEB SCH ×2 (08:55→20:55)
[2022-11-09] MEDS: DUONEB 0.5 MG/3 MG (3 mL) NEB SCH ×4 (08:55→20:55)
--- NOTE | 2022-11-09 11:14 | PCM.PROG ---
Progress Note Progress Note for Day of Date of Exam: 11/09/22 Subjective Subjective: Pt is a 52 year old female admitted for acute bronchitis and bronchiolitis. This morning she reports feeling better than yesterday and breathing improved after smart vest. She is alert and awake and remains on 2L nasal cannula supplemental oxygen. Minimal wheezing heard on lung exam. Labs: W bc 10.2, Hgb 13.2, Plt 349, Na 136, K 4.0, Creatinine 0.83, Glucose 125, Urine culture positive [facility]. Maintaining her sats above 90. She is currently receiving p.o. theophylline 400 mg twice daily, IV Solumedrol 40mg q8h, antibiotics: Rocephin and Vibramycin. Pt continuing to improve, will continue with current treatment plan. Monitor and follow up labs/imaging. Past Medical Family Social History Allergies: Allergies No Known Drug Allergies Allergy (Verified 11/04/22 11:43) Review of Systems ROS: No change since H&P Vital Signs and I&O's Vital Signs: Temperature 98.2 F Pulse Rate [Apical] 64 Pulse Rate 83 Respiratory Rate 16 Blood Pressure [Left Arm] 118/59 Blood Pressure [Right Arm] 154/76 Blood Pressure 100/52 O2 Sat by Pulse Oximetry 97 Intake and Output: Intake & Output 11/06/22 11/07/22 11/08/22 11/09/22 23:59 23:59 23:59 23:59 Intake Total 2807 / 2807 3182 / 3182 4178 / 4178 690 / 690 Balance 2807 / 2807 3182 / 3182 4178 / 4178 690 / 690 Physical Exam Oriented: Normal, Time and Place Respiratory: Generalized and Diminished Cardiovascular: Normal Auscultation: Bowel Sounds: Normal Tenderness: Normal Skin: Normal Musculoskeletal: Normal Psychiatric: Anxiety Mood Description: Labile Affect: Flat Speech Pattern: Clear and Appropriate Laboratory and Diagnostics Result Diagrams: 11/09/22 04:15 11/09/22 04:15 Labs: 11/04/22 18:55 Urine,Clean Catch Urine Culture - Final [facility] WBC 10.2 X10^3/uL (3.6-10.0) H 11/09/22 04:15 RBC 4.70 X10^6/uL (3.5-5.4) 11/09/22 04:15 Hgb 13.2 g/dL (12.0-16.0) 11/09/22 04:15 Hct 38.8 % (36.0-47.0) 11/09/22 04:15 MCV 82.7 fL (80.0-100.0) 11/09/22 04:15 MCH 28.2 pg (27.0-34.0) 11/09/22 04:15 MCHC 34.1 g/dL (33.0-35.0) 11/09/22 04:15 RDW 14.4 % (11.6-16.5) 11/09/22 04:15 Plt Count 349 X10^3/uL (150.0-450.0) 11/09/22 04:15 Plt Count Comment Adequate (ADEQUATE) 11/06/22 05:55 MPV 9.0 fL (7.4-11.0) 11/09/22 04:15 Neut % (Auto) 82.6 % (42.0-75.0) H 11/09/22 04:15 Lymph % (Auto) 11.9 % (21.0-51.0) L 11/09/22 04:15 [place] % (Auto) 5.3 % (0.0-13.0) 11/09/22 04:15 Eos % (Auto) 0.0 % (0.9-2.9) L 11/09/22 04:15 Baso % (Auto) 0.2 % (0.2-1.0) 11/09/22 04:15 Neut # (Auto) 8.4 x10^3/uL (2.2-4.8) H 11/09/22 04:15 Lymph # (Auto) 1.2 X10^3/uL (1.3-2.9) L 11/09/22 04:15 [place] # (Auto) 0.5 x10^3/uL (0.3-0.8) 11/09/22 04:15 Eos # (Auto) 0.0 x10^3/uL (0.0-0.2) 11/09/22 04:15 Baso # (Auto) 0.0 X10^3/uL (0.0-0.1) 11/09/22 04:15 Absolute Nucleated RBC 0.0 /100WBC 11/09/22 04:15 Total Counted 100 11/06/22 05:55 Neutrophils % (Manual) 88 % (39-76) H 11/06/22 05:55 Band Neutrophils % 1 % (0-10) 11/06/22 05:55 Lymphocytes % (Manual) 10 % (13-43) L 11/06/22 05:55 Monocytes % (Manual) 1 % (4-9) L 11/06/22 05:55 Eosinophils % (Manual) 1 % (0-6) 11/05/22 04:28 Plt Morphology Comment Normal (NORMAL) 11/06/22 05:55 RBC Morphology Normal (NORMAL) 11/06/22 05:55 D-Dimer 0.49 ug/ml (0.0-0.57) 11/04/22 11:54 Sodium 135 mmol/L (136-145) L 11/09/22 04:15 Corrected Sodium 136 mmol/L (136-145) 11/09/22 04:15 Potassium 4.0 mmol/L (3.5-5.1) 11/09/22 04:15 Chloride 99 mmol/L (98-107) 11/09/22 04:15 Carbon Dioxide 29.8 mmol/L (21-32) 11/09/22 04:15 BUN 20 mg/dL (7-18) H 11/09/22 04:15 Creatinine 0.83 mg/dL (0.55-1.02) 11/09/22 04:15 Est GFR (MDRD) Af Amer > 60 (>60) 11/09/22 04:15 Est GFR (MDRD) Non-Af > 60 (>60) 11/09/22 04:15 Glucose 125 mg/dL (65-99) H 11/09/22 04:15 Calcium 8.6 mg/dL (8.5-10.1) 11/09/22 04:15 Corrected Calcium 9.5 mg/dL (8.5-10.1) 11/09/22 04:15 Magnesium 1.9 mg/dL (2.0-2.9) L 11/09/22 04:15 Total Bilirubin 0.20 mg/dL (0.2-1.0) 11/09/22 04:15 AST 15 Units/L (15-37) 11/09/22 04:15 ALT 58 Units/L (12-78) 11/09/22 04:15 Alkaline Phosphatase 113 Units/L (46-116) 11/09/22 04:15 Troponin I High Sens 6.3 ng/L (4.0-60.0) 11/04/22 11:54 Total Protein 6.6 g/dL (6.4-8.2) 11/09/22 04:15 Albumin 2.9 g/dL (3.4-5.0) L 11/09/22 04:15 Globulin 3.7 g/dL (2.5-4.5) 11/09/22 04:15 Albumin/Globulin Ratio 0.8 Ratio (1.1-2.1) L 11/09/22 04:15 Specimen Type Random urine 11/04/22 18:55 Urine Color Yellow (YELLOW) 11/04/22 18:55 Urine Appearance Clear (CLEAR) 11/04/22 18:55 Urine pH 7.0 (5.0 - 8.0) 11/04/22 18:55 Ur Specific [place] 1.010 (1.000-1.030) 11/04/22 18:55 Urine Protein Negative (NEGATIVE) 11/04/22 18:55 Urine Glucose (UA) Negative (NEGATIVE) 11/04/22 18:55 Urine Ketones Negative (NEGATIVE) 11/04/22 18:55 Urine Blood Negative (NEGATIVE) 11/04/22 18:55 Urine Nitrite Negative (NEGATIVE) 11/04/22 18:55 Urine Bilirubin Negative (NEGATIVE) 11/04/22 18:55 Urine Urobilinogen Normal (NORMAL) 11/04/22 18:55 Ur Leukocyte Esterase Negative (NEGATIVE) 11/04/22 18:55 Theophylline 15.3 ug/mL (10-20) 11/08/22 04:00 Influenza Type A Ag Negative-presumptive (NEGATIVE) 11/04/22 12:21 Influenza Type B Ag Negative-presumptive (NEGATIVE) 11/04/22 12:21 SARS CoV-2 RNA Rapid RAH Negative (NEGATIVE) 11/04/22 12:21 Plan (1) Acute bronchitis with bronchospasm: Status: Acute Plan: Continue DuoNebs every 6 hours and start the patient on IV Rocephin 1 g IV daily along with Vibramycin 100 mg IV every 12 hours and continue IV Solu-Medrol 40 mg IV every 8 hours. Recheck chest x-ray tomorrow morning. Repeat CBC and CMP tomorrow morning as well. I will continue p.o. theophylline treatment for the patient. Continue budesonide/formoterol nebs every 12 hours.
[2022-11-09] MEDS: MAGNESIUM SULFATE 1 GRAM/100 mL PREMIX 1 G/100 ML BAG IV PRN (23:12)
[2022-11-10 05:06] LABS: BASOPHILS # (AUTO) 0.1 X10^3/uL (0.0-0.1); BASOPHILS % (AUTO) 0.5 % (0.2-1.0); HEMATOCRIT 39.5 % (36.0-47.0); HEMOGLOBIN 13.3 g/dL (12.0-16.0); LYMPHOCYTES # (AUTO) 1.1 X10^3/uL (1.3-2.9); LYMPHOCYTES % (AUTO) 10.3 % (21.0-51.0); MEAN CORPUSCULAR HEMOGLOBIN 27.9 pg (27.0-34.0); MEAN CORPUSCULAR HGB CONC 33.7 g/dL (33.0-35.0); MEAN CORPUSCULAR VOLUME 82.9 fL (80.0-100.0); MONOCYTES # (AUTO) 0.6 x10^3/uL (0.3-0.8); MONOCYTES % (AUTO) 5.4 % (0.0-13.0); NEUTROPHILS % (AUTO) 83.8 % (42.0-75.0); RED BLOOD COUNT 4.76 X10^6/uL (3.5-5.4); RED CELL DISTRIBUTION WIDTH 14.3 % (11.6-16.5); WHITE BLOOD COUNT 10.7 X10^3/uL (3.6-10.0)
[2022-11-10 05:13] LABS: ALANINE AMINOTRANSFERASE 47 Units/L (12-78); ALBUMIN 2.8 g/dL (3.4-5.0); ALKALINE PHOSPHATASE 123 Units/L (46-116); ASPARTATE AMINO TRANSFERASE 14 Units/L (15-37); BLOOD UREA NITROGEN 22 mg/dL (7-18); CALCIUM 8.4 mg/dL (8.5-10.1); CARBON DIOXIDE 28.9 mmol/L (21-32); CHLORIDE 101 mmol/L (98-107); COR CA(FOR HYPOALB) 9.4 mg/dL (8.5-10.1); COR NA(FOR HYPERGLY) 137 mmol/L (136-145); CREATININE 0.83 mg/dL (0.55-1.02); SODIUM 137 mmol/L (136-145); TOTAL PROTEIN 6.3 g/dL (6.4-8.2); eGFR NON BLACK RACES > 60 (>60)
[2022-11-10 05:35] LABS: BAND NEUTROPHILS % 1 % (0-10); PLATELET MORPHOLOGY COMMENT NORMAL (NORMAL)
[2022-11-10] MEDS: SOLU-Medrol 40 MG VIAL IVP SCH ×3 (06:04→21:05)
[2022-11-10] MEDS: MAG-OX TAB PO SCH ×2 (06:04→17:26)
[2022-11-10] MEDS: NS 1,000 ML IV 1,000 ML IV SCH ×2 (06:04→15:49)
--- NOTE | 2022-11-10 06:14 | RAD ---
HISTORYBronchiolitisSTUDYChest AP [id number]/2023 chest x-ray and CT chestFINDINGSThe heart size is normal. The leroy are normal. The lungs are less well inflated than on the prior examination. Minimal perihilar subsegmental atelectasis is present on the right. No acute infiltrates or pleural effusions are identified. Bony thorax is unremarkable.IMPRESSIONNo acute infiltrateRight-sided perihilar subsegmental atelectasisLungs less well inflated than on the prior examination.Electronically signed by: NINOSKA HAMMONDS (Nov 10, 2022 06:12:49)
[2022-11-10] MEDS: DUONEB 0.5 MG/3 MG (3 mL) NEB SCH ×4 (08:24→20:20)
[2022-11-10] MEDS: PULMICORT NEB TX 0.5 MG NEB SCH ×2 (08:24→20:20)
[2022-11-10] MEDS: ROCEPHIN VIAL 1 GRAM 1 G in NS 100 ML IV 100 ML IV SCH (08:30)
[2022-11-10] MEDS: UNIPHYL TAB 400 MG 24-HR PO SCH (08:30)
[2022-11-10] MEDS: PEPCID TAB 20 MG PO SCH ×2 (08:30→21:05)
[2022-11-10] MEDS: TUSSIONEX PENNKINETIC SUSP PO SCH ×2 (09:15→21:06)
[2022-11-10] MEDS: VIBRAMYCIN 100 MG in D5W 250 ML IV 250 ML IV SCH ×2 (09:30→21:06)
--- NOTE | 2022-11-10 15:28 | PCM.PROG ---
Progress Note Progress Note for Day of Date of Exam: 11/10/22 Subjective Subjective: Pt is a 52 year old female admitted for acute bronchitis and bronchiolitis. Patient reports she feels worse this morning compared to yesterday. She did report feeling much better yesterday but feels more tired and weak today. She is still having some dyspnea but overall improved since adm ission. Plan on discharge most likely tomorrow. We will take the oxygen off today and see how she does without the oxygen as she is not able to afford oxygen to go home with. If she tolerates it well today we will plan on discharging home tomorrow morning. Past Medical Family Social History Allergies: Allergies No Known Drug Allergies Allergy (Verified 11/04/22 11:43) Review of Systems ROS: No change since H&P Vital Signs and I&O's Vital Signs: Temperature 97.9 F Pulse Rate [Apical] 86 Pulse Rate 101 Respiratory Rate 20 Blood Pressure [Left Arm] 125/64 Blood Pressure [Right Arm] 154/76 Blood Pressure 100/52 O2 Sat by Pulse Oximetry 93 Intake and Output: Intake & Output 11/08/22 11/09/22 11/10/22 11/11/22 11:59 11:59 11:59 11:59 Intake Total 3384 / 3384 4092 / 4092 3564 / 3564 Balance 3384 / 3384 4092 / 4092 3564 / 3564 Physical Exam Oriented: Normal, Time and Place Respiratory: Generalized, Diminished and Rhonchi Cardiovascular: Normal Auscultation: Bowel Sounds: Normal Tenderness: Normal Skin: Normal Musculoskeletal: Normal Psychiatric: Anxiety Mood Description: Labile Affect: Flat Speech Pattern: Clear and Appropriate Laboratory and Diagnostics Result Diagrams: 11/10/22 04:15 11/10/22 04:15 Labs: 11/04/22 18:55 Urine,Clean Catch Urine Culture - Final [facility] WBC 10.7 X10^3/uL (3.6-10.0) H 11/10/22 04:15 RBC 4.76 X10^6/uL (3.5-5.4) 11/10/22 04:15 Hgb 13.3 g/dL (12.0-16.0) 11/10/22 04:15 Hct 39.5 % (36.0-47.0) 11/10/22 04:15 MCV 82.9 fL (80.0-100.0) 11/10/22 04:15 MCH 27.9 pg (27.0-34.0) 11/10/22 04:15 MCHC 33.7 g/dL (33.0-35.0) 11/10/22 04:15 RDW 14.3 % (11.6-16.5) 11/10/22 04:15 Plt Count 328 X10^3/uL (150.0-450.0) 11/10/22 04:15 Plt Count Comment Adequate (ADEQUATE) 11/10/22 04:15 MPV 9.0 fL (7.4-11.0) 11/10/22 04:15 Neut % (Auto) 83.8 % (42.0-75.0) H 11/10/22 04:15 Lymph % (Auto) 10.3 % (21.0-51.0) L 11/10/22 04:15 Reeves % (Auto) 5.4 % (0.0-13.0) 11/10/22 04:15 Eos % (Auto) 0.0 % (0.9-2.9) L 11/10/22 04:15 Baso % (Auto) 0.5 % (0.2-1.0) 11/10/22 04:15 Neut # (Auto) 9.0 x10^3/uL (2.2-4.8) H 11/10/22 04:15 Lymph # (Auto) 1.1 X10^3/uL (1.3-2.9) L 11/10/22 04:15 Reeves # (Auto) 0.6 x10^3/uL (0.3-0.8) 11/10/22 04:15 Eos # (Auto) 0.0 x10^3/uL (0.0-0.2) 11/10/22 04:15 Baso # (Auto) 0.1 X10^3/uL (0.0-0.1) 11/10/22 04:15 Absolute Nucleated RBC 0.0 /100WBC 11/10/22 04:15 Total Counted 100 11/10/22 04:15 Neutrophils % (Manual) 79 % (39-76) H 11/10/22 04:15 Band Neutrophils % 1 % (0-10) 11/10/22 04:15 Lymphocytes % (Manual) 13 % (13-43) 11/10/22 04:15 Monocytes % (Manual) 7 % (4-9) 11/10/22 04:15 Eosinophils % (Manual) 1 % (0-6) 11/05/22 04:28 Plt Morphology Comment Normal (NORMAL) 11/10/22 04:15 RBC Morphology Normal (NORMAL) 11/10/22 04:15 D-Dimer 0.49 ug/ml (0.0-0.57) 11/04/22 11:54 Sodium 137 mmol/L (136-145) 11/10/22 04:15 Corrected Sodium 137 mmol/L (136-145) 11/10/22 04:15 Potassium 4.2 mmol/L (3.5-5.1) 11/10/22 04:15 Chloride 101 mmol/L (98-107) 11/10/22 04:15 Carbon Dioxide 28.9 mmol/L (21-32) 11/10/22 04:15 BUN 22 mg/dL (7-18) H 11/10/22 04:15 Creatinine 0.83 mg/dL (0.55-1.02) 11/10/22 04:15 Est GFR (MDRD) Af Amer > 60 (>60) 11/10/22 04:15 Est GFR (MDRD) Non-Af > 60 (>60) 11/10/22 04:15 Glucose 119 mg/dL (65-99) H 11/10/22 04:15 Calcium 8.4 mg/dL (8.5-10.1) L 11/10/22 04:15 Corrected Calcium 9.4 mg/dL (8.5-10.1) 11/10/22 04:15 Magnesium 2.4 mg/dL (2.0-2.9) 11/10/22 04:15 Total Bilirubin 0.20 mg/dL (0.2-1.0) 11/10/22 04:15 AST 14 Units/L (15-37) L 11/10/22 04:15 ALT 47 Units/L (12-78) 11/10/22 04:15 Alkaline Phosphatase 123 Units/L (46-116) H 11/10/22 04:15 Troponin I High Sens 6.3 ng/L (4.0-60.0) 11/04/22 11:54 Total Protein 6.3 g/dL (6.4-8.2) L 11/10/22 04:15 Albumin 2.8 g/dL (3.4-5.0) L 11/10/22 04:15 Globulin 3.5 g/dL (2.5-4.5) 11/10/22 04:15 Albumin/Globulin Ratio 0.8 Ratio (1.1-2.1) L 11/10/22 04:15 Specimen Type Random urine 11/04/22 18:55 Urine Color Yellow (YELLOW) 11/04/22 18:55 Urine Appearance Clear (CLEAR) 11/04/22 18:55 Urine pH 7.0 (5.0 - 8.0) 11/04/22 18:55 Ur Specific [place] 1.010 (1.000-1.030) 11/04/22 18:55 Urine Protein Negative (NEGATIVE) 11/04/22 18:55 Urine Glucose (UA) Negative (NEGATIVE) 11/04/22 18:55 Urine Ketones Negative (NEGATIVE) 11/04/22 18:55 Urine Blood Negative (NEGATIVE) 11/04/22 18:55 Urine Nitrite Negative (NEGATIVE) 11/04/22 18:55 Urine Bilirubin Negative (NEGATIVE) 11/04/22 18:55 Urine Urobilinogen Normal (NORMAL) 11/04/22 18:55 Ur Leukocyte Esterase Negative (NEGATIVE) 11/04/22 18:55 Theophylline 15.3 ug/mL (10-20) 11/08/22 04:00 Influenza Type A Ag Negative-presumptive (NEGATIVE) 11/04/22 12:21 Influenza Type B Ag Negative-presumptive (NEGATIVE) 11/04/22 12:21 SARS CoV-2 RNA Rapid RAH Negative (NEGATIVE) 11/04/22 12:21 Plan (1) Acute bronchitis with bronchospasm: Status: Acute Plan: Continue DuoNebs every 6 hours and start the patient on IV Rocephin 1 g IV daily along with Vibramycin 100 mg IV every 12 hours and continue IV Solu-Medrol 40 mg IV every 8 hours. Recheck chest x-ray tomorrow morning. Repeat CBC and CMP tomorrow morning as well. I will continue p.o. theophylline treatment for the patient. Continue budesonide/formoterol nebs every 12 hours.
[2022-11-10] MEDS: COLACE CAP 100 MG PO PRN (15:48)
[2022-11-10] MEDS: MILK OF MAGNESIA PO PRN (21:11)
[2022-11-11] MEDS: NS 1,000 ML IV 1,000 ML IV SCH (03:04)
[2022-11-11 05:08] LABS: BASOPHILS % (AUTO) 0.4 % (0.2-1.0); EOSINOPHILS % (AUTO) 0.2 % (0.9-2.9); HEMATOCRIT 38.6 % (36.0-47.0); HEMOGLOBIN 13.2 g/dL (12.0-16.0); LYMPHOCYTES # (AUTO) 1.4 X10^3/uL (1.3-2.9); LYMPHOCYTES % (AUTO) 12.9 % (21.0-51.0); MEAN CORPUSCULAR HEMOGLOBIN 28.4 pg (27.0-34.0); MEAN CORPUSCULAR HGB CONC 34.1 g/dL (33.0-35.0); MEAN CORPUSCULAR VOLUME 83.2 fL (80.0-100.0); MEAN PLATELET VOLUME 8.7 fL (7.4-11.0); MONOCYTES # (AUTO) 0.6 x10^3/uL (0.3-0.8); MONOCYTES % (AUTO) 5.2 % (0.0-13.0); NEUTROPHILS % (AUTO) 81.3 % (42.0-75.0); RED BLOOD COUNT 4.64 X10^6/uL (3.5-5.4); RED CELL DISTRIBUTION WIDTH 14.4 % (11.6-16.5)
[2022-11-11 05:17] LABS: BLOOD UREA NITROGEN 20 mg/dL (7-18); CALCIUM 8.4 mg/dL (8.5-10.1); CARBON DIOXIDE 29.8 mmol/L (21-32); CHLORIDE 100 mmol/L (98-107); COR NA(FOR HYPERGLY) 141 mmol/L (136-145); CREATININE 0.92 mg/dL (0.55-1.02); SODIUM 139 mmol/L (136-145); eGFR NON BLACK RACES > 60 (>60)
[2022-11-11 05:44] LABS: BAND NEUTROPHILS % 3 % (0-10); PLATELET MORPHOLOGY COMMENT NORMAL (NORMAL)
[2022-11-11] MEDS: SOLU-Medrol 40 MG VIAL IVP SCH (05:59)
[2022-11-11] MEDS: MAG-OX TAB PO SCH (06:00)
[2022-11-11 06:24] LABS: ALANINE AMINOTRANSFERASE 38 Units/L (12-78); ALBUMIN 2.8 g/dL (3.4-5.0); ALKALINE PHOSPHATASE 129 Units/L (46-116); ASPARTATE AMINO TRANSFERASE 12 Units/L (15-37); COR CA(FOR HYPOALB) 9.4 mg/dL (8.5-10.1); TOTAL PROTEIN 6.2 g/dL (6.4-8.2)
[2022-11-11] MEDS: TUSSIONEX PENNKINETIC SUSP PO SCH (08:26)
[2022-11-11] MEDS: ROCEPHIN VIAL 1 GRAM 1 G in NS 100 ML IV 100 ML IV SCH (08:26)
[2022-11-11] MEDS: UNIPHYL TAB 400 MG 24-HR PO SCH (08:27)
[2022-11-11] MEDS: PEPCID TAB 20 MG PO SCH (08:27)
[2022-11-11] MEDS: PULMICORT NEB TX 0.5 MG NEB SCH (08:35)
[2022-11-11] MEDS: DUONEB 0.5 MG/3 MG (3 mL) NEB SCH (08:36)
[2022-11-11] MEDS: VIBRAMYCIN 100 MG in D5W 250 ML IV 250 ML IV SCH (09:07)
[2022-11-11 12:12] VITALS: BP 104/62
== END 2022-11-11 12:15 | disposition home or self-care (01) | DRG 203 ==
LOC: ICU 11:40 → ER 11:40 → OBSVTOIN 14:09 → ICU 14:34
PROVIDERS: ADMIT Family Medicine; ATTEND Family Medicine
DX: R94.31 Abnormal electrocardiogram [ECG] [EKG]; W57.XXXA Bitten or stung by nonvenomous insect and other nonvenomous arthropods, initial encounter; R06.02 Shortness of breath; B96.89 Other specified bacterial agents as the cause of diseases classified elsewhere; Y92.9 Unspecified place or not applicable; R55 Syncope and collapse; J20.9 Acute bronchitis, unspecified; Z86.16 Personal history of COVID-19; Z20.822 Contact with and (suspected) exposure to COVID-19; S60.561A Insect bite (nonvenomous) of right hand, initial encounter